=== PATIENT | female | born 1955 | race Hispanic/Latino ===

== ENCOUNTER 2023-10-15 16:05 | Emergency (ER) | payer MEDICARE, OTHER ==
[~2023-10-15] VITALS: Ht 152.4 cm; Wt 78.9 kg
[2023-10-15 16:13] VITALS: PULSE 77; RESP 18; TEMP 98.8; O2SAT 99
[2023-10-15] MEDS: KETOROLAC TROMETHAMINE 30 MG/ML VIAL IM STA (16:50)
[2023-10-15] MEDS ORDERED: NAPROXEN250 MG PO (17:57)
[2023-10-15] MEDS ORDERED: HYDROCODON-ACE1 EA11 PO (17:57)
== END 2023-10-15 18:05 | disposition home or self-care (01) ==
LOC: ER 16:23
DX: S52.122A Displaced fracture of head of left radius, initial encounter for closed fracture (principal); W18.39XA Other fall on same level, initial encounter; Y93.01 Activity, walking, marching and hiking; Y92.89 Other specified places as the place of occurrence of the external cause; I10 Essential (primary) hypertension; E11.9 Type 2 diabetes mellitus without complications; E78.5 Hyperlipidemia, unspecified
CPT/HCPCS: 29125; 73030; 73080; 73110; 99284; J1885

== ENCOUNTER 2024-07-27 12:14 | Emergency (ER) | payer MEDICARE, OTHER ==
[~2024-07-27] VITALS: Ht 152.4 cm; Wt 78.9 kg
[~2024-07-27 12:14] MED LIST: HYDROCODON-ACE1 EA11 PO; NAPROXEN250 MG PO
[2024-07-27 12:37] VITALS: PULSE 72; RESP 16; TEMP 98.3; O2SAT 98
[2024-07-27] MEDS ORDERED: TRULICITY3 MG/0.5 M INJ (12:42)
== END 2024-07-27 13:52 | disposition home or self-care (01) ==
LOC: ER 12:43
DX: Z76.0 Encounter for issue of repeat prescription (principal); I10 Essential (primary) hypertension; E11.65 Type 2 diabetes mellitus with hyperglycemia; E78.5 Hyperlipidemia, unspecified; H54.62 Unqualified visual loss, left eye, normal vision right eye
CPT/HCPCS: 36415; 82948; 99283